=== PATIENT | male | born 1965 | race Caucasian/White ===

== ENCOUNTER 2018-08-27 11:52 | Emergency (ER) | payer OTHER ==
--- NOTE | 2018-08-27 12:05 | ED ---
Lower Extremity - HPI Summary HPI Summary: A 53 y/o M presents to ED with c/o bilat LE pain and lower back/hip pain, bilaterally but R worse than L, onset three days ago. At work four days ago, patient was doing a lot of repetitive physical motions. He states being unable to get out of bed the next morning, and each subsequent morning. He describes the pain as dull but intense; he feels his LE just "gives out" when he's working. Aggravating factors: weight bearing, morning when first getting out of body. Associated sx: episodes of R knee numbness. Pt denies any fever, chills, erythema of eyes, sore throat, CP, SOB, cough, abdominal pain, N/V, dysuria, hematuria, edema, rash, or dizziness. Denies bowel and bladder incontinence. He was taking creatinine for a while but hasn't since the pain started. Takes testosterone boosters. He drinks sometimes, works at a [employer]. - History of Current Complaint Chief Complaint: EDExtremityLower Stated Complaint: RIGHT SIDE INJURY PER PT Hx Obtained From: Patient Onset of Pain: Days, Prior to Arrival Onset/Duration: Days Severity Initially: Mild Severity Currently: Mild Pain Intensity: 0 - when not aggravated Pain Scale Used: 0-10 Numeric Timing: Intermittent Location: Is Diffuse - lower-half of body Character Of Pain: Dull Associated Signs And Symptoms: Positive: Other - pos: RLE numbness Aggravating Factor(s): Movement, Other - first getting out of bed in the AM Alleviating Factor(s): Other - heat Able to Bear Weight: Yes Related History: Occupational Injury - Allergies/Home Medications Allergies/Adverse Reactions: Allergies Allergy/AdvReac Type Severity Reaction Status Date / Time No Known Allergies Allergy Verified 08/27/18 11:58 Home Medications: Home Medications Ascorbic Acid TAB* [Vitamin C TAB*] 2,000 mg PO DAILY 08/27/18 [History Confirmed 08/27/18] Multivitamin [Multivitamins] 1 cap PO DAILY 08/27/18 [History Confirmed 08/27/18 ] PMH/Surg Hx/FS Hx/Imm Hx Previously Healthy: Yes Sensory History: Denies: Hx Legally Blind, Hx Deafness Opthamlomology History: Denies: Hx Legally Blind EENT History: Denies: Hx Deafness Neurological History: Denies: Hx Dementia Infectious Disease History: No Infectious Disease History: Denies: Traveled Outside the [place] in Last 30 Days - Family History Known Family History: Positive: Other - mom - [place] - Social History Occupation: Employed Full-time Lives: With Family Alcohol Use: Weekly Review of Systems Negative: Fever, Chills Negative: Drainage Negative: Sore Throat Negative: Chest Pain Negative: Shortness Of Breath, Cough Negative: Abdominal Pain, Vomiting, Nausea Negative: dysuria, hematuria Musculoskeletal: Other - pos: low back, hip and LE pain Negative: Edema Negative: Rash Neurological: Other - neg: dizziness Positive: Numbness - RLE numbness at posterior knee All Other Systems Reviewed And Are Negative: Yes Physical Exam - Summary Physical Exam Summary: Constitutional: Well-developed, Well-nourished, Alert. (-) Distressed Skin: Warm, Dry HENT: Normocephalic; Atraumatic Eyes: Conjunctiva normal Neck: Musculoskeletal ROM normal neck. (-) JVD, (-) Stridor, (-) Tracheal deviation Cardio: Rhythm regular, rate normal, Intact distal pulses; The pedal pulses are 2+ and symmetric. Radial pulses are 2+ and symmetric. (-) Murmur Pulmonary/Chest wall: Effort normal. (-) Respiratory distress Abd: Soft, (-) epigastric tenderness, (-) Distension, (-) Guarding, (-) Rebound Musculoskeletal: (-) Edema, (+) Positive cross straight leg raise, strength is symmetric Lymph: (-) Cervical adenopathy Neuro: Alert, Oriented x3 Psych: Mood and affect Normal Triage Information Reviewed: Yes Vital Signs On Initial Exam: Initial Vitals Temp Pulse Resp BP Pulse Ox 98.4 F 105 16 183/111 97 08/27/18 11:55 08/27/18 11:55 08/27/18 11:55 08/27/18 11:55 08/27/18 11:55 Vital Signs Reviewed: Yes Diagnostics - Vital Signs Vital Signs Temp Pulse Resp BP Pulse Ox 08/27/18 11:55 98.4 F 105 16 183/111 97 - Laboratory Lab Statement: Any lab studies that have been ordered have been reviewed, and results considered in the medical decision making process. Lower Extremity Course/Dx - Course Assessment/Plan: Pt is a 53 y/o M presenting with bilat LE pain, and low back, hip pain, onset three days ago. Denies bowel and urinary incontinence. Pt is ambulatory, strength is symmetric in ED. PE found positive cross straight leg raise. Will discharge patient home with Prednisone, Naproxen, Lidocaine patches and Tramadol and to f/u with [facility]. - Diagnoses Provider Diagnoses: Sciatica, Elevated blood pressure reading without diagnosis of hypertension Discharge - Sign-Out/Discharge Documenting (check all that apply): Patient Departure - DC Patient Received Moderate/Deep Sedation with Procedure: No - Discharge Plan Condition: Stable Disposition: HOME Prescriptions: Lidocaine PATCH 5%* [Lidoderm 5% Patch*] 1 patch TRANSDERM DAILY #14 patch Naproxen TAB* [Naprosyn 250 mg TAB*] 500 mg PO Q8H PRN #30 tab PRN Reason: Pain - Moderate To Severe predniSONE TAB* [Deltasone TAB*] 50 mg PO DAILY #4 tab traMADol TAB* [Ultram*] 50 mg PO Q6HR PRN #10 tab MDD 4 PRN Reason: Pain - Moderate To Severe Patient Education Materials: Naproxen (By mouth), Prednisone (By mouth), Tramadol (By mouth), Lidocaine Patch (On the skin), Sciatica (ED), Hypertension (ED), Lower Back Exercises (ED) Forms: *Work Release Referrals: [facility] [Outside] - 3 Days Additional Instructions: Return to the emergency department for changing or worsening symptoms. - Attestation Statements Document Initiated by Scribe: Yes Documenting Scribe: Shoaib Zaragoza Provider For Whom Scribe is Documenting (Include Credential): Dr. Rl Desir MD Scribe Attestation: I, Shoaib Zaragoza, scribed for Dr. Rl Desir MD on 08/27/18 at 1306. Status of Scribe Document: Ready
[2018-08-27 13:05] VITALS: BP 150/97
== END 2018-08-27 13:04 | disposition home or self-care (01) ==
LOC: ED 11:52
DX: M54.30 Sciatica, unspecified side (principal); R03.0 Elevated blood-pressure reading, without diagnosis of hypertension; M54.5 Low back pain; M25.552 Pain in left hip; M25.551 Pain in right hip
CPT/HCPCS: 99282